=== PATIENT | male | born 1995 | race Hispanic/Latino ===

== ENCOUNTER 2024-07-07 18:58 | Emergency (ER) | payer SELFPAY ==
[~2024-07-07] VITALS: Ht 180.3 cm; Wt 88.5 kg
--- NOTE | 2024-07-07 19:06 | ERN ---
ED Note History of Present Illness Stated Complaint: CHEST TIGHTNESS, LEFT SIDE ARM/FACE NUMBNESS Chief Complaint: Chest Wall Pain Time Seen by MD: 19:00 Dictation: PATIENT IS A 28-YEAR-OLD MALE COMING IN TODAY WITH COMPLAINTS OF EPIGASTRIC AND STERNAL CHEST PAIN NONRADIATING THAT HE HAS HAD FOR ONE WEEK. NO NAUSEA VOMITING NO BACK PAIN NO JAW PAIN. HE STATES HIS LEFT FACE DOES FEEL NUMB. NO PRIMARY CARE DOCTOR AND HE ONLY CAME INTO THE EMERGENCY ROOM TODAY BECAUSE HIS FAMILY MADE HIM COME IN. PATIENT STATES HE DID COCAINE TWO DAYS AGO. HE STATES HE DOES NOT DO IT ALL THE TIME BUT HE DOES DO IT EVERY ONCE A WHILE. Past Medical History Past Medical History: GERD Surgical History: None RN Note Reviewed/Agreed w/PFSH: Yes Review of System Dictation CONSTITUTIONAL: NEGATIVE EXCEPT FOR HPI HEAD/FACE: NEGATIVE EXCEPT FOR HPI EENT: NEGATIVE EXCEPT FOR HPI RESPIRATORY: NEGATIVE EXCEPT FOR HPI CHEST PAIN GASTROINTESTINAL/ABDOMINAL: NEGATIVE EXCEPT FOR HPI GENITOURINARY: NEGATIVE EXCEPT FOR HPI MUSCULOSKELETAL: NEGATIVE EXCEPT FOR HPI INTEGUMENTARY: NEGATIVE EXCEPT FOR HPI NEUROLOGICAL/PSYCH: NEGATIVE EXCEPT FOR HPI HEMATOLOGIC/LYMPHATIC: NEGATIVE EXCEPT FOR HPI ALL SYSTEMS NEGATIVE, EXCEPT NOTED ABOVE. 13 POINT REVIEW OF SYSTEMS ASSESSED AND ALL NEGATIVE EXCEPT FOR ABOVE. Initial Vital Sign VS Vital Signs Date Time Temp Pulse Resp B/P (MAP) Pulse Ox O2 Delivery O2 Flow Rate FiO2 07/07/24 19:00 98.4 76 16 146/85 99 Room Air 0 07/07/24 20:04 21 Physical Exam Dictation VITAL SIGNS REVIEWED GENERAL APPEARANCE: ALERT, ORIENTED X 3, NO ACUTE DISTRESS, WELL DEVELOPED, NOURISHED. HEAD AND FACE: NON-TRAUMATIC. EYES: PERRL, PINK CONJUNCTIVAS, EYELID NO TRAUMA, ANTERIOR CHAMBER WITH ARCUS SENILIS. EARS: PINNAS INTACT AND NO SIGNS OF TRAUMA OR ERYTHEMA EAR CANALS CLEAR AND NO DISCHARGE TM NO ERYTHEMA NOSE: NO DISCHARGE, NO BLEEDING. OROPHARYNX: MOUTH NORMAL, TONGUE PINK, PHARYNX CLEAR,NO ERYTHEMA, TONSILS NO EXUDATES, NO ABSCESSES NOTED, MUCOUS MEMBRANE MOIST NECK: SUPPLE, NON-TENDER, NO THYROMEGALY, NO MASSES, NO JVD, NO BRUITS BREAST:DEFERRED CHEST:NO TENDERNESS, NO CREPITUS, NO PARADOXICAL MOVEMENT, NO RETRACTIONS LUNGS:CLEAR, WELL-VENTILATED, SYMMETRIC, NO RALES, NO WHEEZING, NO RHONCHI, NO STRIDOR, GOOD BREATH SOUNDS BILATERALLY HEART: REGULAR RATE, REGULAR RHYTHM, NO MURMUR, NO GALLOPS VASCULAR: NO PERIPHERAL EDEMA, ABDOMEN: SOFT, POSITIVE BOWEL SOUNDS, NONDISTENDED, NO GUARDING, NONTENDER, NO REBOUND, NO MASSES NO HEPATOMEGALY, NO SPLENOMEGALY, NO PRICE'S SIGN, NO HERNIAS. RECTAL: DEFERRED GENITAL: DEFERRED NEUROLOGICAL: NORMAL SPEECH, MOTOR FUNCTION INTACT, SENSORY FUNCTION INTACT MUSCULOSKELETAL: NECK NONTENDER, FULL RANGE OF MOTION, BACK NONTENDER, FULL RANGE OF MOTION, EXTREMITIES: NONTENDER, FULL RANGE OF MOTION SKIN: COLOR PINK, DRY, NO TURGOR, NO RASH, NO LACERATIONS, NO ABRASIONS, NO CONTUSIONS. LYMPHATIC: DEFERRED Results (Laboratory/Radiology) Laboratory/Radiology Laboratory Tests Test 07/07/24 19:40 White Blood Count 8.0 K/uL (4.8-10.8) Red Blood Count 5.15 MIL/uL (4.50-6.20) Hemoglobin 16.7 g/dL (14.0-18.0) Hematocrit 47.9 % (42-54) Mean Corpuscular Volume 93.0 fL (79-99) Mean Corpuscular Hemoglobin 32.4 pg (27.0-33.0) Mean Corpuscular Hemoglobin Concent 34.9 g/dL (32.0-36.0) Red Cell Distribution Width 11.8 % (11.0-15.5) Platelet Count 182 K/uL (130-400) Mean Platelet Volume 9.1 fL (7.5-10.5) Immature Granulocyte % (Auto) 0.4 % (0-1) Neutrophils (%) (Auto) 71.5 % (40.0-77.0) Lymphocytes (%) (Auto) 17.7 % (21.0-51.0) L Monocytes (%) (Auto) 9.2 % (3.0-13.0) Eosinophils (%) (Auto) 0.7 % (0.0-8.0) Basophils (%) (Auto) 0.5 % (0.0-5.0) Neutrophils # (Auto) 5.7 K/uL (1.8-7.7) Lymphocytes # (Auto) 1.4 K/uL (1.0-4.8) Monocytes # (Auto) 0.7 K/uL (0.1-1.0) Eosinophils # (Auto) 0.06 K/uL (0.00-0.70) Basophils # (Auto) 0.04 K/uL (0.00-0.20) Absolute Immature Granulocyte (auto 0.03 K/uL (0-1) Nucleated Red Blood Cells 0.0 % (0.0-0.19) Sodium Level 137 mmol/L (136-145) Potassium Level 3.9 mmol/L (3.5-5.1) Chloride Level 103 mmol/L (101-111) Carbon Dioxide Level 29 mmol/L (21-32) Blood Urea Nitrogen 12 mg/dL (7-18) Creatinine 1.0 mg/dL (0.5-1.3) Glomerular Filtration Rate Calc 104 mL/min (>90) Random Glucose 93 mg/dL (70-105) Total Calcium 8.9 mg/dL (8.5-10.1) Troponin I High Sensitivity 4 ng/L (4-75) Labs Reviewed?: Yes EKG: (+) NSR EKG Comment: NORMAL SINUS RHYTHM/HEART RATE 72/AXIS NORMAL/NO ECTOPY ED Course ED Course Orders Procedure Category Date Status Time Cbc With Differential LAB 07/07/24 Complete 19:01 12 Lead Ekg Tracing- EKG 07/07/24 Complete Technical 19:01 Troponin I High LAB 07/07/24 Complete Sensitivity 19:01 Basic Metabolic Panel LAB 07/07/24 Complete 19:01 Vital Signs Date Time Temp Pulse Resp B/P (MAP) Pulse Ox O2 Delivery O2 Flow Rate FiO2 07/07/24 20:04 98.6 65 17 124/61 100 Room Air* 0 21 07/07/24 19:00 98.4 76 16 146/85 99 Room Air 0 2024/PATIENT HAS NO PAIN AT THIS TIME. HE WAS MADE AWARE THAT CARDIAC WORKUP IS NEGATIVE. HE WAS STRONGLY ADVISED TO STOP COCAINE USE OR RISK HEART ATTACK, STROKE, INSTANT DUE TO COCAINE CURRENTLY BEING MIXED WITH FENTANYL BY DEALERS. VERY DANGEROUS DRUG 2039/PATIENT ALSO REQUESTED TREATMENT FOR ACUTE GASTRITIS THAT HE HAS HAD FOR MANY YEARS. HE HAS NEVER BEEN TREATED WE WILL GIVE PATIENT CARAFATE/OMEPRAZOLE AND REFER HIM TO DR. ALDANA HEART Score Response (Comments) Value History: Low suspicion (0) 0 EKG: Normal 0 Age: < 45yrs (0) 0 Risk Factors: No known risk factors (0) 0 Initial Troponin: Normal limit (0) 0 Total 0 Medical Decision Making MDM MEDICAL DISCHARGE MAKING BASED ON CARDIAC WORKUP WITH THE EKG. CARDIAC WORKUP IS NEGATIVE COMPLETELY PATIENT DISCHARGED HOME WITH STRONG WARNING AGAINST USE OF COCAINE DX & DISP Disposition: Discharge Departure Impression: Primary Impression: Atypical chest pain Additional Impression: Acute gastritis Condition: Stable Scripts Sucralfate (Carafate) 1 Gram Tablet 1 GM PO ACHS for 10 Days, #40 TAB Prov: TAURUS JALLOH NP 07/07/24 Omeprazole (Omeprazole) 40 Mg Capsule.dr 1 CAP PO DAILY for 30 Days, #30 CAP 0 Refills Prov: TAURUS JALLOH NP 07/07/24 Additional Instructions: FOLLOW-UP WITH PRIMARY CARE PROVIDER IN 1 TO 2 DAYS. TAKE MEDICATIONS DIRECTED HERE IN THE EMERGENCY ROOM. OKAY TO CONTINUE HOME MEDICATIONS UNLESS OTHERWISE DISCUSSED DURING YOUR VISIT IN THE EMERGENCY ROOM TODAY. RETURN TO YOUR NEAREST EMERGENCY ROOM IF SYMPTOMS WORSEN OR IF THERE IS NO IMPROVEMENT. CALL 911 IF YOU NEED IMMEDIATE ASSISTANCE. TAKE TYLENOL OR MOTRIN [id number] NEEDED AND IF NO CONTRAINDICATIONS ARE PRESENT. INCREASE ORAL HYDRATION. A WOUND CULTURE OR URINE CULTURE WAS ORDERED HERE IN THE EMERGENCY ROOM DEPARTMENT PLEASE FOLLOW-UP WITH PRIMARY CARE PROVIDER AND ADVISE THEM TO GET REPEAT PORTS FROM OUR FACILITY. IF YOU HAD ANY ANILA WRAP/SPLINTS THAT WERE APPLIED HERE, PLEASE DO NOT REMOVE THEM UNTIL YOU SEE YOUR PRIMARY CARE OR SPECIALTY. FOLLOW UP WITH ONE OF THE DOCTORS ON THE LIST PROVIDED YOU IN THE NEXT 1-2 DAYS. STRONGLY SUGGEST STOPPING COCAINE AND ANY ILLEGAL DRUG USE. COCAINE RISK INCLUDE HEART ATTACK, STROKE, INSTANT DUE TO COCAINE IS BEING MIXED WITH FENTANYL. FOLLOW A BLAND DIET WITH WATER FOR FLUIDS ONLY. STOP ALCOHOL, TOBACCO, SPICY FOODS, ICE TEA, COFFEE, CITRUS FRUIT JUICE UNTIL CLEARED BY SCHOOL BUS DRIVER/MECHANIC, CALL FOR AN APPOINTMENT TOMORROW. TAKE CARAFATE AND OMEPRAZOLE DIRECTED. Referrals: SHAINA ALDANA MD Time of Disposition: 20:27 I have reviewed the case, and I agree with, Diagnosis and Plan TAURUS JALLOH NP Jul 07, 2024 19:06
--- NOTE | 2024-07-07 19:12 | EKG ---
[facility] Test Date: 2024-07-07 Test Time: 19:09:14 Pat Name: RAUL CELESTE Department: ED Room: Gender: M [employer] Presser: [id number] : 1995 Requested By: TAURUS JALLOH Order Number: [id number] Reading MD: Gerard Ahmadi Measurements Intervals Penelope Rate: 72 P: 54 AR: 125 QRS: 13 QRSD: 99 T: 24 QT: 395 QTc: 432 Interpretive Statements Sinus rhythm No previous ECG available for comparison Electronically Signed On 07-07-2024 22:17:29 CDT by Gerard Ahmadi Please click the below link to view image of tracing.
[2024-07-07 19:47] LABS: BASOPHILS # (AUTO) 0.04 K/uL (0.00-0.20); BASOPHILS % (AUTO) 0.5 % (0.0-5.0); EOSINOPHILS # (AUTO) 0.06 K/uL (0.00-0.70); EOSINOPHILS % (AUTO) 0.7 % (0.0-8.0); HEMATOCRIT 47.9 % (42-54); IMMATURE GRANULOCYTE ABSOLUTE 0.03 K/uL (0-1); LYMPHOCYTES # (AUTO) 1.4 K/uL (1.0-4.8); LYMPHOCYTES % (AUTO) 17.7 % (21.0-51.0); MEAN CORPUSCULAR HEMOGLOBIN 32.4 pg (27.0-33.0); MEAN CORPUSCULAR HGB CONC 34.9 g/dL (32.0-36.0); MONOCYTES # (AUTO) 0.7 K/uL (0.1-1.0); MONOCYTES % (AUTO) 9.2 % (3.0-13.0); NEUTROPHILS # (AUTO) 5.7 K/uL (1.8-7.7); NEUTROPHILS % (AUTO) 71.5 % (40.0-77.0); PLATELET COUNT (AUTO) 182 K/uL (130-400); RED BLOOD CELL COUNT(AUTO) 5.15 MIL/uL (4.50-6.20); RED CELL DISTRIBUTION WIDTH 11.8 % (11.0-15.5)
[2024-07-07 20:04] VITALS: BP 124/61; PULSE 65; RESP 17; TEMP 98.6; O2SAT 100
[2024-07-07 20:20] LABS: POTASSIUM 3.9 mmol/L (3.5-5.1)
[2024-07-07] MEDS ORDERED: OMEP40CA21 PO (20:42)
[2024-07-07] MEDS ORDERED: SUCR1TAB28 PO (20:42)
== END 2024-07-07 20:47 | disposition home or self-care (01) ==
LOC: EDH 18:58
DX: R07.89 Other chest pain (principal); K29.00 Acute gastritis without bleeding; K21.9 Gastro-esophageal reflux disease without esophagitis
CPT/HCPCS: 36415; 80048; 84484; 85025; 93005; 99284